=== PATIENT | female | born 1990 | race African-American/Black ===

== ENCOUNTER 2017-08-22 19:42 | Emergency (ER) | payer OTHER ==
[~2017-08-22] VITALS: Ht 167.6 cm; Wt 63.5 kg
[2017-08-22 19:48] VITALS: Ht 167.6 cm; Wt 63.5 kg
[2017-08-22 20:42] LABS: BASOPHIL % 1.2 % (0-2); PLATELET COUNT 350 x10^3mcL (130-400); RED CELL DISTRIBUTION WIDTH 16.9 % (11.5-14.5)
[2017-08-22 20:57] LABS: ALBUMIN 3.7 g/dL (3.4-5.0); BILIRUBIN TOTAL 0.3 mg/dL (0.20-1.00); CALCIUM 8.9 mg/dL (8.5-10.1); CARBON DIOXIDE 29.2 mmol/L (21-32); POTASSIUM SERUM 3.9 mmol/L (3.5-5.1); TOTAL PROTEIN, SERUM 6.9 g/dL (6.4-8.2)
[2017-08-22 21:02] LABS: CREATININE SERUM 9.1 mg/dL (0.6-1.0)
[2017-08-22 22:12] VITALS: BP 168/113
[2017-08-23] MEDS ORDERED: HYDROXYCHLOROQ200 MG PO (10:07)
[2017-08-23] MEDS ORDERED: MINOXIDIL2.5 MG PO (10:07)
[2017-08-23] MEDS ORDERED: CLONIDINE HCL0.2 MG PO (10:08)
[2017-08-23] MEDS ORDERED: DIOVAN320 MG PO (10:08)
[2017-08-23] MEDS ORDERED: HYDRALAZINE HC100 MG PO (10:09)
[2017-08-23] MEDS ORDERED: CARVEDILOL25 M1 PO (10:09)
[2017-08-23] MEDS ORDERED: CEPHALEXIN500 MG PO (10:10)
[2017-08-23] MEDS ORDERED: ELIQUIS5 MG PO (10:14)
== END 2017-08-22 22:12 | disposition home or self-care (01) ==
LOC: ED 19:42
PROVIDERS: Emergency Medicine
DX: G89.18 Other acute postprocedural pain (principal); I12.0 Hypertensive chronic kidney disease with stage 5 chronic kidney disease or end stage renal disease; N18.6 End stage renal disease; Z88.6 Allergy status to analgesic agent
CPT/HCPCS: J0690; J2270; J2405; J3010

== ENCOUNTER 2017-08-23 09:04 | Inpatient (IN) | payer OTHER ==
[~2017-08-23] VITALS: Ht 167.6 cm; Wt 63.0 kg
[2017-08-23 09:06] VITALS: Ht 167.6 cm; Wt 63.0 kg
[2017-08-23 09:51] LABS: BASOPHIL % 1.2 % (0-2)
[2017-08-23 10:02] LABS: PLATELET COUNT 403 x10^3mcL (130-400); RED CELL DISTRIBUTION WIDTH 16.6 % (11.5-14.5)
[2017-08-23] MEDS ORDERED: MINOXIDIL2.5 MG PO (10:07)
[2017-08-23] MEDS ORDERED: HYDROXYCHLOROQ200 MG PO (10:07)
[2017-08-23] MEDS ORDERED: CLONIDINE HCL0.2 MG PO (10:08)
[2017-08-23] MEDS ORDERED: DIOVAN320 MG PO (10:08)
[2017-08-23] MEDS ORDERED: HYDRALAZINE HC100 MG PO (10:09)
[2017-08-23] MEDS ORDERED: CARVEDILOL25 M1 PO (10:09)
[2017-08-23] MEDS ORDERED: CEPHALEXIN500 MG PO (10:10)
[2017-08-23] MEDS ORDERED: ELIQUIS5 MG PO (10:14)
[2017-08-23 10:21] LABS: ALBUMIN 3.9 g/dL (3.4-5.0); BILIRUBIN TOTAL 0.5 mg/dL (0.20-1.00); CALCIUM 9.8 mg/dL (8.5-10.1); CARBON DIOXIDE 29.8 mmol/L (21-32); POTASSIUM SERUM 3.9 mmol/L (3.5-5.1); TOTAL PROTEIN, SERUM 7.4 g/dL (6.4-8.2)
[2017-08-23 10:25] LABS: CREATININE SERUM 10.4 mg/dL (0.6-1.0)
[2017-08-23 10:51] LABS: UA SPECIFIC GRAVITY 1.015 (1.005-1.035); microscopic required? YES; urine erythrocyte TRACE (NEGATIVE)
[2017-08-23 12:24] LABS: MAGNESIUM 2.4 mg/dL (1.8-2.4)
[2017-08-23 12:26] LABS: CHOLESTEROL/HDL RATIO 2.8
[2017-08-23 12:29] LABS: T3 TOTAL 1.25 ng/mL
[2017-08-23 12:33] LABS: AMPHETAMINE QUAL UR NONE DETECTED (See below)
[2017-08-23 12:37] LABS: FREE T4 2.24 ng/dL (0.76-1.46)
[2017-08-23 12:38] LABS: FREE THYROXINE INDEX 6.7 ug/dL (1.4-4.5); T4(THYROXINE) 17.6 ug/dL (4.7-13.3)
[2017-08-23 13:22] VITALS: BP 165/117
[2017-08-23 17:00] VITALS: BP 154/104
[2017-08-23 20:54] VITALS: BP 154/104
[2017-08-23 21:43] VITALS: BP 154/99
[2017-08-24 06:28] VITALS: BP 170/114
[2017-08-24 07:22] LABS: CALCIUM 9.1 mg/dL (8.5-10.1); CARBON DIOXIDE 31.8 mmol/L (21-32); POTASSIUM SERUM 3.4 mmol/L (3.5-5.1)
[2017-08-24 07:28] LABS: BASOPHIL % 0.4 % (0-2); PLATELET COUNT 310 x10^3mcL (130-400)
[2017-08-24 07:36] LABS: RED CELL DISTRIBUTION WIDTH 16.8 % (11.5-14.5)
[2017-08-24 07:40] LABS: CREATININE SERUM 7.5 mg/dL (0.6-1.0)
[2017-08-24 08:54] VITALS: BP 163/111
[2017-08-24 17:34] VITALS: BP 179/134
[2017-08-24 22:06] VITALS: BP 150/90
[2017-08-25 06:06] VITALS: BP 154/99
[2017-08-25 06:29] LABS: CALCIUM 8.7 mg/dL (8.5-10.1); CARBON DIOXIDE 29.3 mmol/L (21-32); MAGNESIUM 2.1 mg/dL (1.8-2.4); PHOSPHOROUS 5.8 mg/dL (2.5-4.9); POTASSIUM SERUM 4.2 mmol/L (3.5-5.1)
[2017-08-25 06:46] LABS: BASOPHIL % 0.5 % (0-2); PLATELET COUNT 361 x10^3mcL (130-400)
[2017-08-25 06:47] LABS: RED CELL DISTRIBUTION WIDTH 16.7 % (11.5-14.5)
[2017-08-25 06:54] LABS: CREATININE SERUM 9.6 mg/dL (0.6-1.0)
[2017-08-25 16:57] VITALS: BP 155/118
[2017-08-25 21:15] VITALS: BP 170/132
[2017-08-25 23:22] VITALS: BP 165/127
[2017-08-26] VITALS (15 sets, daily range): BP systolic 140–188; BP diastolic 92–140
[2017-08-26 06:30] LABS: CALCIUM 9.6 mg/dL (8.5-10.1); CARBON DIOXIDE 27.2 mmol/L (21-32); MAGNESIUM 1.9 mg/dL (1.8-2.4)
[2017-08-26 06:31] LABS: BASOPHIL % 0.5 % (0-2); PLATELET COUNT 293 x10^3mcL (130-400)
[2017-08-26 06:57] LABS: RED CELL DISTRIBUTION WIDTH 16.1 % (11.5-14.5)
[2017-08-27] VITALS (7 sets, daily range): BP systolic 118–145; BP diastolic 71–99
[2017-08-27 04:46] LABS: BASOPHIL % 0.3 % (0-2); PLATELET COUNT 292 x10^3mcL (130-400)
[2017-08-27 04:56] LABS: CALCIUM 8.8 mg/dL (8.5-10.1); CARBON DIOXIDE 26.4 mmol/L (21-32); PHOSPHOROUS 6.1 mg/dL (2.5-4.9); POTASSIUM SERUM 4.2 mmol/L (3.5-5.1)
[2017-08-27 04:59] LABS: RED CELL DISTRIBUTION WIDTH 15.9 % (11.5-14.5)
[2017-08-27 05:02] LABS: CREATININE SERUM 9.5 mg/dL (0.6-1.0)
[2017-08-28 05:48] VITALS: BP 142/91
[2017-08-28 09:01] VITALS: BP 146/103
[2017-08-28 10:46] LABS: CALCIUM 8.9 mg/dL (8.5-10.1); CARBON DIOXIDE 27.7 mmol/L (21-32); POTASSIUM SERUM 3.6 mmol/L (3.5-5.1)
[2017-08-28 10:48] LABS: BASOPHIL % 0.3 % (0-2); PLATELET COUNT 338 x10^3mcL (130-400)
[2017-08-28 10:50] LABS: CREATININE SERUM 6.6 mg/dL (0.6-1.0); RED CELL DISTRIBUTION WIDTH 16.4 % (11.5-14.5)
[2017-08-28 11:04] LABS: MAGNESIUM 1.9 mg/dL (1.8-2.4)
[2017-08-28 13:53] VITALS: BP 132/82
[2017-08-28 17:15] VITALS: BP 121/76
[2017-08-28] MEDS ORDERED: ELIQUIS5 MG PO (17:44)
[2017-08-28] MEDS ORDERED: CLONIDINE HCL0.2 MG PO (17:45)
[2017-08-28] MEDS ORDERED: HYDRALAZINE HC100 MG PO (17:45)
[2017-08-28] MEDS ORDERED: MINOXIDIL2.5 MG PO (17:46)
[2017-08-28] MEDS ORDERED: DIOVAN320 MG PO (17:46)
[2017-08-28] MEDS ORDERED: COR6 PO (17:48)
[2017-08-28 18:12] VITALS: BP 121/76
== END 2017-08-28 19:05 | disposition home or self-care (01) | DRG 205 ==
LOC: ED 09:04 → DU 11:32 → MU 11:32 → DU 12:43 → MU 08-24 08:19 → DU 08-27 01:48
PROVIDERS: Emergency Medicine; Family Medicine; Family Medicine Sports Medicine
DX: M94.0 Chondrocostal junction syndrome [Tietze] (principal); N18.6 End stage renal disease; I50.43 Acute on chronic combined systolic (congestive) and diastolic (congestive) heart failure; N17.0 Acute kidney failure with tubular necrosis; I13.2 Hypertensive heart and chronic kidney disease with heart failure and with stage 5 chronic kidney disease, or end stage renal disease; Z68.1 Body mass index [BMI] 19.9 or less, adult; I42.0 Dilated cardiomyopathy; I27.82 Chronic pulmonary embolism; N05.8 Unspecified nephritic syndrome with other morphologic changes; K59.00 Constipation, unspecified; E83.39 Other disorders of phosphorus metabolism; I73.9 Peripheral vascular disease, unspecified; I10 Essential (primary) hypertension; M32.9 Systemic lupus erythematosus, unspecified; F12.10 Cannabis abuse, uncomplicated; Z99.2 Dependence on renal dialysis; Z79.01 Long term (current) use of anticoagulants; Z88.6 Allergy status to analgesic agent; Z88.5 Allergy status to narcotic agent
CPT/HCPCS: 36600; 83880; 84439; 90658; 90732; 94150; C9113; J0360; J0690; J1200; J1644; J1940; J2060; J2270; J2405; J2930; J3010; J3490; J7030; J7613; J7620; Q0092; Q0163

== ENCOUNTER 2017-09-10 19:56 | Inpatient (IN) | payer OTHER ==
[~2017-09-10] VITALS: Ht 167.6 cm; Wt 51.2 kg
[~2017-09-10 19:56] MED LIST: CARVEDILOL25 M1 PO; CEPHALEXIN500 MG PO; CLONIDINE HCL0.2 MG PO; COR6 PO; DIOVAN320 MG PO; ELIQUIS5 MG PO; HYDRALAZINE HC100 MG PO; HYDROXYCHLOROQ200 MG PO; MINOXIDIL2.5 MG PO
[2017-09-10 21:33] LABS: BASOPHIL % 0.9 % (0-2)
[2017-09-10 21:37] LABS: PLATELET COUNT 451 x10^3mcL (130-400); RED CELL DISTRIBUTION WIDTH 17.1 % (11.5-14.5)
[2017-09-10 21:52] LABS: ALBUMIN 3.7 g/dL (3.4-5.0); BILIRUBIN TOTAL 0.44 mg/dL (0.20-1.00); CALCIUM 9.6 mg/dL (8.5-10.1); CARBON DIOXIDE 28.7 mmol/L (21-32); FREE T4 1.55 ng/dL (0.76-1.46); TOTAL PROTEIN, SERUM 7.5 g/dL (6.4-8.2)
[2017-09-10 21:56] LABS: CREATININE SERUM 7.8 mg/dL (0.6-1.0)
[2017-09-10 23:29] LABS: CHOLESTEROL/HDL RATIO 2.6; MAGNESIUM 2.7 mg/dL (1.8-2.4); PHOSPHOROUS 3.8 mg/dL (2.5-4.9)
[2017-09-11] VITALS (7 sets, daily range): BP systolic 152–184; BP diastolic 85–128
[2017-09-12] VITALS (8 sets, daily range): BP systolic 117–151; BP diastolic 74–97
[2017-09-12 07:23] LABS: BASOPHIL % 0.4 % (0-2); PLATELET COUNT 351 x10^3mcL (130-400)
[2017-09-12 07:33] LABS: RED CELL DISTRIBUTION WIDTH 16.7 % (11.5-14.5)
[2017-09-12 07:43] LABS: CALCIUM 8.4 mg/dL (8.5-10.1); CARBON DIOXIDE 26.1 mmol/L (21-32); PHOSPHOROUS 4.3 mg/dL (2.5-4.9); POTASSIUM SERUM 3.6 mmol/L (3.5-5.1)
[2017-09-12 07:48] LABS: CREATININE SERUM 5.7 mg/dL (0.6-1.0)
[2017-09-13 01:24] VITALS: BP 127/90
[2017-09-13 04:09] VITALS: BP 143/95
[2017-09-13 05:43] VITALS: BP 136/93
[2017-09-13 06:45] LABS: BASOPHIL % 0.3 % (0-2); PLATELET COUNT 384 x10^3mcL (130-400)
[2017-09-13 07:01] LABS: CARBON DIOXIDE 25.2 mmol/L (21-32); MAGNESIUM 2.1 mg/dL (1.8-2.4); PHOSPHOROUS 5.7 mg/dL (2.5-4.9); POTASSIUM SERUM 4.7 mmol/L (3.5-5.1)
[2017-09-13 07:15] LABS: CREATININE SERUM 7.7 mg/dL (0.6-1.0); RED CELL DISTRIBUTION WIDTH 16.8 % (11.5-14.5)
[2017-09-13 13:29] VITALS: BP 144/96
[2017-09-13 16:45] VITALS: BP 147/85
[2017-09-13 16:57] VITALS: BP 154/109
[2017-09-13] MEDS ORDERED: ALBUTEROL SULFAT3 ML NEB (18:42)
== END 2017-09-13 19:04 | disposition home or self-care (01) | DRG 291 ==
LOC: ED 19:56 → DU 22:43
PROVIDERS: Emergency Medicine; Internal Medicine
DX: I13.2 Hypertensive heart and chronic kidney disease with heart failure and with stage 5 chronic kidney disease, or end stage renal disease (principal); I50.43 Acute on chronic combined systolic (congestive) and diastolic (congestive) heart failure; N18.6 End stage renal disease; M32.14 Glomerular disease in systemic lupus erythematosus; E83.41 Hypermagnesemia; E87.8 Other disorders of electrolyte and fluid balance, not elsewhere classified; K31.84 Gastroparesis; D69.59 Other secondary thrombocytopenia; D64.9 Anemia, unspecified; Z99.2 Dependence on renal dialysis
CPT/HCPCS: 36600; 83880; 84439; 94150; J0360; J1200; J1940; J2060; J2270; J2405; J2543; J2920; J2930; J3490; J7030; J7620; J7626; Q0092; Q0163